=== PATIENT | female | born 1980 | race African-American/Black ===

== ENCOUNTER 2019-11-09 16:12 | Emergency (ER) | payer BC ==
[~2019-11-09] VITALS: Ht 165.1 cm; Wt 59.0 kg
--- NOTE | 2019-11-09 16:53 | NUR ---
Patient discharged to home in stable conditon. Written and verbal after care instructions given. Patient verbalizes understanding of instructions.
== END 2019-11-09 16:54 | disposition home or self-care (01) ==
LOC: ER 16:16
DX: S50.12XA Contusion of left forearm, initial encounter (principal); W01.198A Fall on same level from slipping, tripping and stumbling with subsequent striking against other object, initial encounter; Y93.89 Activity, other specified; Y92.89 Other specified places as the place of occurrence of the external cause; Y99.8 Other external cause status
CPT/HCPCS: 73090; A4663